=== PATIENT | female | born 2000 | race Two or more races ===

== ENCOUNTER 2024-04-28 11:13 | Emergency (ER) | payer MEDICAID, SELFPAY ==
[2024-04-28 12:09] VITALS: BP 122/81; PULSE 85; RESP 19; TEMP 36.7; O2SAT 95; BMI 42.5
--- NOTE | 2024-04-28 12:14 | XR_ITS ---
Examination: CT abdomen and pelvis without contrast. Coronal 3-D reconstructions. Sagittal 2-D reconstructions. Date and time of exam:April 28, 2024 1447 hrs. Indications: Abdominal pain with rectal bleeding and diarrhea beginning one week ago CTDI: vol (mGy): 14.3 DLP: (mGycm): 825 Technique: Axial images of the abdomen have been obtained, 3 mm slice thickness Intravenous contrast material has not been administered. Low dose protocols were performed. One or more of the following dose reduction techniques were used; automated exposure control, adjustment of the mA and/or KV according to patient size, use of iterative reconstruction technique. Findings: No focal liver or splenic lesions No gallstones No pancreatic or adrenal mass No renal or ureteral calculi No pericecal inflammatory change Anteverted uterus Urinary bladder wall thickening up to 4 mm No bladder calculi No nonspecific colitis or enteritis pattern, however, this is a noncontrast study The osseous structures are intact Impression: No renal or ureteral calculi No CT findings of appendicitis bowel obstruction or diverticulitis No nonspecific colitis or enteritis noted
--- NOTE | 2024-04-28 12:15 | PD.EDRME ---
Rapid Medical Screening Exam RME Arrival date/time: 04/28/24 11:13 24-year-old female presents emergency department complaining of chest pain, abdominal pain, and rectal bleeding that is been ongoing for 1 week. Chief Complaint: GI Bleed Time Seen by Provider: 04/28/24 12:05 Vital signs: Vital Signs Temperature 98.1 F 04/28/24 12:09 Pulse Rate 85 04/28/24 12:09 Respiratory Rate 19 04/28/24 12:09 Blood Pressure 122/81 04/28/24 12:09 Pulse Oximetry (%) 95 04/28/24 12:09 Oxygen Delivery Method Room Air 04/28/24 12:09 Vital signs reviewed by provider: Yes
--- NOTE | 2024-04-28 12:16 | EKG_ITS ---
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
[2024-04-28 12:42] LABS: Basophils % (Auto) 0 % (0-2.5); Eosinophils % (Auto) 0 % (0-10); Hematocrit 37.6 % (36.0-46.0); Hemoglobin 11.9 g/dL (12.0-16.0); Immature Granulocytes % (Auto) 0 % (0-0); Immature Granulocytes Auto 0.02 Thou/mm3 (0.00-0.00); Lymphocytes # (Auto) 2.4 Thou/mm3 (1.0-4.8); Lymphocytes % (Auto) 26 % (10-50); Mean Corpuscular HGB Conc 31.6 g/dl (31.0-37.0); Mean Corpuscular Hemoglobin 25.8 pg (25.0-35.0); Mean Corpuscular Volume 81 fL (80-100); Monocytes # (Auto) 0.4 Thou/mm3 (0.0-0.8); Monocytes % (Auto) 5 % (0-12); Neutrophils # (Auto) 6.1 Thou/mm3 (1.8-7.7); Neutrophils % (Auto) 68 % (37-80); Nucleated Red Blood Cell % 0 /100 WBC (0); Platelet Count 461 Thou/mm3 (140-440); Red Blood Count 4.62 Miln/mm3 (4.00-5.20); White Blood Count 8.9 Thou/mm3 (3.6-11.0)
[2024-04-28 12:55] LABS: B-Type Natriuretic Peptide < 20 pg/mL (0-100)
[2024-04-28 12:58] LABS: Alanine Aminotransferase 53 U/L (10-49); Albumin, Serum 5.2 gm/dL (3.5-5.0); Albumin/Globulin Ratio 1.6 (1.2-2.2); Alkaline Phosphatase 103 U/L (46-116); Anion Gap 8 (7-16); Aspartate Amino Transferase 73 U/L (0-34); BUN/Creatinine Ratio 9 Ratio (12-20); Bilirubin,Total 0.7 mg/dL (0.3-1.2); Blood Urea Nitrogen 7 mg/dL (9-23); Chloride 104 mMol/L (98-107); Creatinine (Component) 0.8 mg/dL (0.6-1.3); Estimated Creatinine Clearance 124.8 mL/min (>60); Globulin 3.2 gm/dL (2.3-3.5); Glucose 109 mg/dL (74-106); HCG,Qualitative Serum Negative; Lipase 38 U/L (12-53); Magnesium 1.8 mg/dL (1.6-2.6); Osmolality,Calculated 276 (275-295); Potassium 3.4 mMol/L (3.4-5.1); Sodium 139 mMol/L (136-145); Total Protein 8.4 gm/dL (5.7-8.2); Troponin I < 0.002 ng/mL (0.0-0.045); eGFR > 60 See Note
[2024-04-28 13:00] LABS: INR 1.1 (0.9-1.3); Partial Thromboplastin Time 27.7 Seconds (22.0-36.0); Prothrombin Time 11.5 Seconds (9.0-12.2)
[2024-04-28 13:11] LABS: Collection Type, Urine Clean Catch
[2024-04-28 13:57] LABS: Bilirubin,Urine Negative (Negative); Blood,Urine Negative (Negative); Color,Urine Yellow (Lt Yel-Yel); Culture Indicated,Urine Not Indicated; Glucose, Urine Negative (Negative); Ketones,Urine Negative (Negative); Leukocyte Esterase,Urine Negative (Negative); Nitrite,Urine Negative (Negative); Protein,Urine 1+ (Neg - Trace); RBC,Urine 1 /hpf (0-3); Specific Gravity,Urine 1.029 (1.001-1.035); Squamous Epithelial Cell,Urine 11 /hpf (0-5); WBC,Urine 1 /hpf (0-5)
[2024-04-28 14:01] LABS: Clarity,Urine Hazy (Clear/Hazy)
--- NOTE | 2024-04-28 14:09 | EDNOTE_ITS ---
ED GI Bleed RME/HPI General Chief complaint: GI Bleed Stated complaint: RECTAL BLEEDING/PAIN X 1 WK W/DIARRHEA; ABD PAIN Time Seen by Provider: 04/28/24 12:05 Arrival date/time: 04/28/24 11:13 Limitations: no limitations RME / HPI RME / HPI Narrative: 04/28/24 11:13 HPI Patient: 24-year-old female presenting to the ED. Chief Complaint: Chest pain, abdominal pain, and rectal bleeding for 1 week. History: Reports bright red blood in stool, denies recent travel or antibiotic use. Occasional periumbilical pain unrelated to bowel movements, painless bowel movements. Denies bleeding or bruising issues. Generally healthy. Hemoglobin: 11.9. Rectal exam was chaperoned by Eemly ZUNIGA, shows a skin tag of an old hemorrhoid without active bleeding, but glove was tinged with bright red blood. Abdominal exam unremarkable. DDX * Hemorrhoids: Common cause of rectal bleeding, especially with a history of hemorrhoids. * Anal fissures: Can cause bright red blood in stool and pain. * Inflammatory bowel disease (IBD): Conditions like Crohn's disease or ulcerative colitis can cause abdominal pain and rectal bleeding. * Infectious colitis: Infection in the colon can cause similar symptoms. * Gastrointestinal bleeding: Could be from a source higher up in the GI tract, such as ulcers or gastritis. * Colorectal cancer: Though less likely in a young patient, should be considered given the symptoms. MDM * Confirm diagnosis: Further evaluation with colonoscopy to identify the source of bleeding. * Management options: * Medical management: Treat any identified infection or inflammation with appropriate medications. * Surgical management: If a significant source of bleeding is identified that requires intervention. * Supportive care: Ensure adequate hydration and nutrition. * Follow-up: Arrange for follow-up care with a drawer in stitch bonding machine for further evaluation and management. * Patient was discussed with Dr. Keenan. He recommended shen patient to be discharged on Cipro and Flagyl, FU with PCP. May need OP GI referral. Return to ED if worsens Related Data Previous Rx's ?Medication ?Instructions ?Recorded hydrocodone 10 mg-acetaminophen 1 tab PO Q6H PRN pain #20 tabs 10/10/23 325 mg tablet ciprofloxacin HCl 500 mg tablet 500 mg PO BID #14 tabs 04/28/24 (Cipro) metronidazole 500 mg tablet 500 mg PO BID 7 days #14 tabs 04/28/24 Allergies Allergy/AdvReac Type Severity Reaction Status Date / Time No Known Allergies Allergy Verified 04/28/24 11:14 Review of Systems Review of Systems Systems Reviewed: All systems reviewed, normal except as documented ED Exam General Limitations: Present no limitations General appearance: Present alert Head Head exam: Present atraumatic Eye Eye exam: Present normal appearance and EOMI ENT ENT exam: Present normal exam Neck Neck exam: Present normal inspection Chest Chest inspection: Present symmetric chest wall rise Respiratory Respiratory exam: Present normal lung sounds bilaterally Cardiovascular Cardiovascular exam: Present regular rate, normal rhythm and normal heart sounds Abdominal Exam Abdominal exam: Present soft and normal bowel sounds Rectal Exam Rectal exam: Present other (See HPI) Course Quality Measures none Orders Category Date Time Status EKG (ED ONLY) *Do not use* NOW Care 04/28/24 12:[address] abdomen pelvis wo con Stat Exams 04/28/24 12:14 Completed EKG (ED Only) Stat Exams 04/28/24 12:16 Draft BNP [B-Type Natriuretic Peptide] Stat Lab 04/28/24 12:26 Completed CBC Stat Lab 04/28/24 12:26 Completed CMP [Comprehensive Metabolic Panel] Stat Lab 04/28/24 12:26 Completed HCG,Qualitative Serum Stat Lab 04/28/24 12:26 Completed Lipase Stat Lab 04/28/24 12:26 Completed Mag [Magnesium] Stat Lab 04/28/24 12:26 Completed PT [Prothrombin Time with INR] Stat Lab 04/28/24 12:26 Completed PTT [Partial Thromboplastin Time] Stat Lab 04/28/24 12:26 Completed Troponin I Stat Lab 04/28/24 12:26 Completed Urinalysis, C/S if Indicated Stat Lab 04/28/24 12:46 Completed Ciprofloxacin HCl [Ciprofloxacin] Med 04/28/24 16:44 Discontinued 500 mg PO X1 ONE Vital Signs Vital signs: Vital Signs Temperature 98.1 F 04/28/24 12:09 Pulse Rate 85 04/28/24 12:09 Respiratory Rate 19 04/28/24 12:09 Blood Pressure 122/81 04/28/24 12:09 Pulse Oximetry (%) 95 04/28/24 12:09 Oxygen Delivery Method Room Air 04/28/24 12:09 GI Bleed Patient data External records reviewed:: [facility] previous records Clinical information provided by:: patient Social determinants that could affect healthcare access:: none Patient has the following chronic illnesses:: None How is presenting disease/condition affected by chronic disease/condition?: no chronic disease Evaluation data The following diagnostics were reviewed and interpreted by me:: lab results, radiology exam(s) and EKG tracing(s) Lab and/or radiology exams considered but not ordered:: See MDM Interpretation Summary: See MDM Medications / Prescriptions Medications or Prescriptions considered but not ordered:: NA Medication administrations:: Medication Administration History Discontinued Medications Ciprofloxacin (Ciprofloxacin Hcl 250 Mg Tablet) 500 mg PO X1 ONE Stop: 04/28/24 16:45 Last Admin: 04/28/24 16:59 Dose: 500 mg Documented By: Noted Consultations Consultation(s) initiated? (list below): Yes Diagnosis GI bleed differential diagnosis: hemorrhoids, Lower gastrointestinal hemorrhage, hematochezia and anal fissure Most likely diagnosis given after review of the tests above:: Bloody diarrhea Admission Indicated Admission indicated?: not indicated Admission Request Was there a request for admission?: No Disposition Plan Disposition Plan: Discharge Discharge Attestation Discharge Attestation: The patient and all family members were given an opportunity to ask questions and understood the discharge instructions. Discharge instructions specifically effects, indications for sooner follow up or return to the emergency department, and the expected course of current diagnosis. Patient condition: Stable Discharge Plan Plan Patient Disposition: HOME (Self Care) Disposition Comment: stable Patient condition on transfer: Stable Prescriptions/Referrals Prescriptions/Med Rec: New ciprofloxacin HCl [Cipro] 500 mg tablet 500 mg PO BID Qty: 14 0RF metronidazole 500 mg tablet 500 mg PO BID 7 Days Qty: 14 0RF No Action hydrocodone-acetaminophen 10-325 mg tablet 1 tab PO Q6H MDD 4 PRN (Reason: pain) Qty: 20 0RF Referrals: Jose Hough MD [Primary Care Provider] - In 1 week Problem List Clinical Impression: Bloody diarrhea Patient/Caregiver Discharge Instructions Discharge Activity: activity as tolerated Education Materials: Treating Diarrhea Additional Instructions: Thank you for the opportunity for serving you today. You are stable for discharged . You are advised to: Follow-up with your PCP in 1 to 2 days and asked for referral to GI specialist Return to ED for worsening of symptoms Increase oral fluids Take medication as prescribed Print Language: Faroese Stand Alone Forms: Thu Award Info., Patient Portal Info Letter PA/VEGETABLE GRADER Supervising Physician PA/VEGETABLE GRADER Supervising Physician: MD Cj
--- NOTE | 2024-04-28 16:03 | PC.NURSE ---
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
[2024-04-28 16:27] VITALS: BP 115/79; PULSE 79; RESP 18; TEMP 36.7; O2SAT 97
--- NOTE | 2024-04-28 16:46 | EDNOTE_ITS ---
ED GI Bleed RME/HPI General Chief complaint: GI Bleed Stated complaint: RECTAL BLEEDING/PAIN X 1 WK W/DIARRHEA; ABD PAIN Time Seen by Provider: 04/28/24 12:05 Arrival date/time: 04/28/24 11:13 Limitations: no limitations RME / HPI RME / HPI Narrative: 04/28/24 11:13 HPI Patient: 24-year-old female presenting to the ED. Chief Complaint: Chest pain, abdominal pain, and rectal bleeding for 1 week. History: Reports bright red blood in stool, denies recent travel or antibiotic use. Occasional periumbilical pain unrelated to bowel movements, painless bowel movements. Denies bleeding or bruising issues. Generally healthy. Hemoglobin: 11.9. Rectal exam was chaperoned by Emely ZUNIGA, shows a skin tag of an old hemorrhoid without active bleeding, but glove was tinged with bright red blood. Ysabel Notes: 24-year-old female patient came in for evaluation regarding bloody diarrhea. Patient's been having bloody diarrhea, for 1 week, associated with lower abdominal discomfort. Blood is described as bright red blood. Patient denies any travel recently or antibiotic use. Denies any fever denies any vomiting denies any bruising denies any other complaints patient is not taking any blood thinner. Related Data Previous Rx's ?Medication ?Instructions ?Recorded hydrocodone 10 mg-acetaminophen 1 tab PO Q6H PRN pain #20 tabs 10/10/23 325 mg tablet ciprofloxacin HCl 500 mg tablet 500 mg PO BID #14 tabs 04/28/24 (Cipro) metronidazole 500 mg tablet 500 mg PO BID 7 days #14 tabs 04/28/24 Allergies Allergy/AdvReac Type Severity Reaction Status Date / Time No Known Allergies Allergy Verified 04/28/24 11:14 Review of Systems Review of Systems Narrative Review of Systems: Review of system reviewed and within normal limits except mentioned in HPI ED Exam Narrative Physical exam: VITAL SIGNS: Reviewed. GENERAL APPEARANCE: Alert and interactive, follows commands, no acute distress, HEAD AND FACE: Non-traumatic. ENT: PERRL, pink conjunctivitis, eyelid no trauma, Mucous membrane moist. NECK: Supple, nontender, no nuchal rigidity. CHEST: No tenderness, no crepitus, no paradoxical movement, no retractions. LUNGS: Clear, well ventilated, symmetric, no rales, no wheezing, no ronchi, no stridor, good breath sounds bilaterally. HEART: Regular rate, regular rhythm, no murmur, no gallops. ABDOMEN: Soft, positive bowel sounds, nondistended, no guarding, nontender, no rebound, no masses, RECTAL: See rectal exam done by Dr. Corona GENITAL: Deferred. NEUROLOGICAL: Gross motor function intact sensory function intact, Appropriate for age. MUSCULOSKELETAL: low back nontender, full range of motion. EXTREMITIES: Nontender, full range of motion. SKIN: Color pink, dry, no rash, no lacerations, no abrasions, no contusions. LYMPHATICS: Deferred. General Limitations: Present no limitations General appearance: Present alert Course Quality Measures none Orders Category Date Time Status EKG (ED ONLY) *Do not use* NOW Care 04/28/24 12:[address] abdomen pelvis wo con Stat Exams 04/28/24 12:14 Completed EKG (ED Only) Stat Exams 04/28/24 12:16 Draft BNP [B-Type Natriuretic Peptide] Stat Lab 04/28/24 12:26 Completed CBC Stat Lab 04/28/24 12:26 Completed CMP [Comprehensive Metabolic Panel] Stat Lab 04/28/24 12:26 Completed HCG,Qualitative Serum Stat Lab 04/28/24 12:26 Completed Lipase Stat Lab 04/28/24 12:26 Completed Mag [Magnesium] Stat Lab 04/28/24 12:26 Completed PT [Prothrombin Time with INR] Stat Lab 04/28/24 12:26 Completed PTT [Partial Thromboplastin Time] Stat Lab 04/28/24 12:26 Completed Troponin I Stat Lab 04/28/24 12:26 Completed Urinalysis, C/S if Indicated Stat Lab 04/28/24 12:46 Completed Ciprofloxacin HCl [Ciprofloxacin] Med 04/28/24 16:44 Discontinued 500 mg PO X1 ONE Vital Signs Vital signs: Vital Signs Temperature 98.1 F 04/28/24 12:09 Pulse Rate 85 04/28/24 12:09 Respiratory Rate 19 04/28/24 12:09 Blood Pressure 122/81 04/28/24 12:09 Pulse Oximetry (%) 95 04/28/24 12:09 Oxygen Delivery Method Room Air 04/28/24 12:09 GI Bleed MDM Narrative MDM Narrative:: 24-year-old female patient came in for evaluation regarding bloody diarrhea. Patient's been having bloody diarrhea, for 1 week, associated with lower abdominal discomfort. Blood is described as bright red blood. Patient denies any travel recently or antibiotic use. Denies any fever denies any vomiting denies any bruising denies any other complaints patient is not taking any blood thinner. Patient's workup all came back unremarkable. Patient did not show any anemia. No leukocytosis also. The rest of the labs unremarkable. CT scan of the abdomen and pelvis came back unremarkable. Patient was advised to closely follow-up with PCP and for referral to GI specialist for outpatient colonoscopy. Patient will be given empiric antibiotic treatment. For bloody diarrhea. Patient was presented to Dr. Keenan our gastroenterologists in consultation. Patient will be discharged home on Cipro and Flagyl with a diagnosis of bacterial enteritis. It is recommended to follow-up with her primary care provider. If her symptoms continues, may need to be referred for colonoscopy. If she worsens, needs to return to emergency department for reevaluation. Patient data External records reviewed:: None Clinical information provided by:: patient Social determinants that could affect healthcare access:: none Patient has the following chronic illnesses:: none How is presenting disease/condition affected by chronic disease/condition?: no chronic disease Evaluation data The following diagnostics were reviewed and interpreted by me:: lab results and radiology exam(s) Lab and/or radiology exams considered but not ordered:: None Interpretation Summary: Laboratory workup all came back unremarkable. CT scan of the abdomen and pelvis came back normal also. Medications / Prescriptions Medications or Prescriptions considered but not ordered:: Plan Medication administrations:: Medication Administration History Discontinued Medications Ciprofloxacin (Ciprofloxacin Hcl 250 Mg Tablet) 500 mg PO X1 ONE Stop: 04/28/24 16:45 Last Admin: 04/28/24 16:59 Dose: 500 mg Documented By: Cipro Consultations Consultation(s) initiated? (list below): No Diagnosis GI bleed differential diagnosis: hemorrhoids, infectious diarrhea and Lower gastrointestinal hemorrhage Most likely diagnosis given after review of the tests above:: Bloody diarrhea Admission Indicated Admission indicated?: not indicated Explain why admission is indicated or not indicated:: Stable Admission Request Was there a request for admission?: No Disposition Plan Disposition Plan: Discharge Discharge Attestation Discharge Attestation: The patient and all family members were given an opportunity to ask questions and understood the discharge instructions. Discharge instructions specifically effects, indications for sooner follow up or return to the emergency department, and the expected course of current diagnosis. Patient condition: Stable Discharge Plan Plan Patient Disposition: HOME (Self Care) Disposition Comment: stable Patient condition on transfer: Stable Prescriptions/Referrals Prescriptions/Med Rec: New ciprofloxacin HCl [Cipro] 500 mg tablet 500 mg PO BID Qty: 14 0RF metronidazole 500 mg tablet 500 mg PO BID 7 Days Qty: 14 0RF No Action hydrocodone-acetaminophen 10-325 mg tablet 1 tab PO Q6H MDD 4 PRN (Reason: pain) Qty: 20 0RF Referrals: Jose Hough MD [Primary Care Provider] - In 1 week Problem List Clinical Impression: Bloody diarrhea Patient/Caregiver Discharge Instructions Discharge Activity: activity as tolerated Education Materials: Treating Diarrhea Additional Instructions: Thank you for the opportunity for serving you today. You are stable for discharged . You are advised to: Follow-up with your PCP in 1 to 2 days and asked for referral to GI specialist Return to ED for worsening of symptoms Increase oral fluids Take medication as prescribed Print Language: Maltese Stand Alone Forms: Thu Award Info., Patient Portal Info Letter PA/NUCLEAR MEDICINE TECHNICIAN Supervising Physician NIKOS/AMISHA Supervising Physician: MD Cj
[2024-04-28] MEDS: CIPROFLOXACIN HCL 250 MG TABLET 500 MG PO (16:59)
== END 2024-04-28 17:06 | disposition home or self-care (01) ==
PROVIDERS: Emergency Provider Emergency Medicine; PCP Family Medicine
DX: A04.9 Bacterial intestinal infection, unspecified (principal)
CPT/HCPCS: 36415; 74176; 80053; 81001; 83690; 83735; 83880; 84484; 84703; 85025; 85610; 85730; 93005; 99284; A9270

== ENCOUNTER 2024-06-11 17:57 | Emergency (ER) | payer MEDICAID, SELFPAY ==
[2024-06-11 18:26] VITALS: BP 120/75; PULSE 91; RESP 20; TEMP 36.8; O2SAT 97; BMI 42.0
--- NOTE | 2024-06-11 18:29 | XR_ITS ---
EXAMINATION: Ankle, left 3 views . Technique: Ankle AP, oblique, lateral 3 views Date and time of exam: June 11, 2024 at 1834 hours INDICATIONS: Left ankle pain beginning 4 days ago after falling into a pothole, patient heard a crack in the ankle followed by pain FINDINGS: No acute fracture No ankle dislocation No foreign body IMPRESSION: No acute fracture
--- NOTE | 2024-06-11 18:29 | PD.EDANKLE ---
Lower Extremity Injury RME/HPI General Chief Complaint: Ankle/Foot Injury Stated Complaint: LEFT ANKLE INJURY X 4 DAYS Time Seen by Provider: 06/11/24 18:07 Source: patient Arrival date/time: 06/11/24 17:57 24-year-old female presents emergency department complaining of left ankle pain and swelling after stepping in a pothole 4 days ago. Patient reports has been able to bear weight with some pain. Mode of arrival: ambulatory Limitations: no limitations Related Data Previous Rx's ?Medication ?Instructions ?Recorded hydrocodone 10 mg-acetaminophen 1 tab PO Q6H PRN pain #20 tabs 10/10/23 325 mg tablet ciprofloxacin HCl 500 mg tablet 500 mg PO BID #14 tabs 04/28/24 (Cipro) acetaminophen 500 mg capsule 500 mg PO Q6H PRN pain #30 caps 06/11/24 Allergies Allergy/AdvReac Type Severity Reaction Status Date / Time No Known Allergies Allergy Verified 06/11/24 17:58 Review of Systems Review of Systems Systems Reviewed: All systems reviewed, normal except as documented Constitutional Constitutional: Reports system reviewed and no additional complaints, except as documented, Denies body ache(s), Denies chills and Denies fever(s) Eyes Eyes: Reports system reviewed and no additional complaints, except as documented and Denies change in vision ENT Ears, Nose, Mouth, and Throat: Reports system reviewed and no additional complaints, except as documented, Denies disequilibrium, Denies dizziness, Denies sore throat and Denies vertigo Cardiovascular Cardiovascular: Reports system reviewed and no additional complaints, except as documented, Denies chest pain and Denies dyspnea Respiratory Respiratory: Reports system reviewed and no additional complaints, except as documented, Denies chest congestion, Denies cough and Denies dyspnea Gastrointestinal Gastrointestinal: Reports system reviewed and no additional complaints, except as documented, Denies abdominal pain, Denies nausea and Denies vomiting Musculoskeletal Musculoskeletal: Reports system reviewed and no additional complaints, except as documented, Denies abnormal gait and Reports arthralgias Integumentary/Breasts Skin/Breast: Reports system reviewed and no additional complaints, except as documented, Denies erythema, Denies rash and Denies wounds Neurologic Neurologic: Reports system reviewed and no additional complaints, except as documented, Denies abnormal gait, Denies disequilibrium, Denies dizziness and Denies vertigo Past Medical History Past Medical History NEUROLOGIC: Negative Neurological Disorders, Cerebrovascular Accident, Transient Ischemic Attacks (TIA), Dementia, Alzheimer's Disease, Parkinson's Disease, Brain Tumor, Meningitis, Seizures, Epilepsy, Multiple Sclerosis, Cerebral Palsy, Amyotrophic Lateral Sclerosis (ALS/Eboni Gehrig's), Guillain-Branford Syndrome, Spina Bifida, Paralysis, Peripheral Neuropathy, Tatum's Palsy, Subdural Hematoma, Migraine, Head Trauma, Spinal Cord Injury or Traumatic Brain Injury CARDIAC: Negative Cardiac Disorders, Myocardial Infarction, Cardiac Arrhythmia, Atrial Fibrillation, Angina, Heart Murmur, Coronary Artery Disease, Atherosclerotic Heart Disease, Peripheral Vascular Disease, Hypercholesterolemia, Aneurysm, Congestive Heart Failure, Congenital Heart Disease, Valvular Heart Disease, Rheumatic Fever, Cardiomyopathy, Edema, Pericarditis, Cellulitis, Deep Vein Thrombosis, Hypertension, Hypotension or Varicose Veins RESPIRATORY: Negative Chronic Obstructive Pulmonary Disease (COPD), Asthma, Bronchitis, Emphysema, Pneumonia, Pulmonary Fibrosis, Cystic Fibrosis, Tuberculosis, Pulmonary Embolism, Pulmonary Edema or Sleep Apnea GASTROINTESTINAL: Positive Gastrointestinal Disorders, Gastrointestinal Bleed (vomiting), Crohn's Disease and Obesity; Negative Hepatitis, Cirrhosis, Pancreatitis, Celiac Disease, Gall Bladder Disease, Esophageal Varices, Joyce's Esophagus, Colitis, Ulcerative Colitis (1 month ago), Diverticulitis, Diverticulosis, Ulcer, Colorectal Cancer, Irritable Bowel, Obstructive Bowel, Hiatal Hernia, Hemorrhoids or Gastroesophageal Reflux Disease GENITOURINARY: Negative Genitourinary Disorders, Renal Disease, Kidney Stones, Polycystic Kidney Disease, Neurogenic Bladder, Inguinal Hernia, Dialysis or Prostate Cancer (n/a) REPRODUCTIVE: Positive Previous Pregnancies (1); Negative Breast Cancer, Endometriosis, Genital Herpes, Gonorrhea, Pelvic Inflammatory Disease, Syphilis, Testicular Cancer (n/a) or Uterine Prolapse MUSCULOSKELETAL: Negative Musculoskeletal Disorders, Muscular Dystrophy, Myasthenia Gravis, Marfan's Syndrome, Bone Cancer, Arthritis, Rheumatoid Arthritis, Osteoporosis, Degenerative Disk Disease, Gout, Scoliosis, Carpal Tunnel Syndrome, Fibromyalgia, Fractures, Degenerative Joint Disease, Osteomyelitis or Poliovirus ENT: Negative Cataracts, Glaucoma, Blind, Retinal Detachment, Macular Degeneration, Ear Infection, Deafness, Head Trauma or Eye Prosthesis ENDOCRINE: Negative Endocrine Disorders, Diabetes Mellitus Type 1, Diabetes Mellitus Type 2, Hypoglycemia, Lamin's Syndrome, Buddy's Disease, Hyperthyroidism, Hypothyroidism, Parathyroid Disease, Pituitary Disease, Systemic Lupus Erythematosus, Syndrome of Inappropriate Antidiuretic Hormone (SIADH), Adrenal Disease or Graves' Disease HEMATOLOGIC: Negative Blood Disorders, Anemia, Leukemia, Hemophilia, Thalassemia, Sickle Cell Disease or Clotting Problems PSYCHO/SOCIAL: Negative Psychiatric Problems, Schizophrenia, Recreational Drug Use, Bipolar Disorder, Depression, Anxiety, Behavior Problems, Self-Mutilation, Attention Deficit Disorder, Attention Deficit Hyperactivity Disorder, Depression, Post Traumatic Stress Disorder or Eating Disorder OTHER HISTORY: Positive Hospitalization (child ); Negative Autoimmune Disease, Down Syndrome, Autism, Developmental Delay, Shingles, Falls, Blood Transfusions, Blood Transfusion Reaction, Anesthesia Reactions, Organ Transplant, Radiation Therapy, Hyperbaric Therapy, MRSA, VRSA, Vancomycin-Resistant Enterococci, Human Immunodeficiency Virus (HIV), Chicken Pox, Measles, Mumps, Rubella (English Measles), Pertussis, Clostridium Difficile, Cancer, Breast Cancer, Cervical Cancer, Colorectal Cancer, Lung Cancer, Ovarian Cancer, Prostate Cancer (n/a) or Testicular Cancer (n/a) Family History FAMILY HISTORY: Negative Family Psychiatric Problems, Family Respiratory Disorders, Family Cardiac Disorders, Family Gastrointestinal Problems, Family Cancer, Family Surgery or Family Anesthesia Reaction Surgical History SURGICAL: Positive Abdominal Surgery; Negative Cardiac Surgery, Open Heart Surgery, Coronary Artery Bypass Graft, Valve Replacement, Vascular Surgery, Coronary Stent, Cardiac Catheterization, Pacemaker, Angiogram, Auto Implanted Cardiovert Defib, Carotid Endarterectomy, Endocrine Surgery, Thyroidectomy, Ear Surgery, Tympanostomy Tube, Eye Surgery, Nose Surgery, Oral Surgery, Tonsillectomy, Adenoidectomy, Cochlear Implant, Corneal Transplant, Throat Surgery, Tracheostomy, Gastric Bypass Surgery, Gastrostomy, Bowel Surgery, Nephrectomy, Transurethral Resection, Joint Replacement, Amputation, Open Reduction Internal Fixation, Arthroscopy, Neurologic Surgery, Brain Shunt, Mastectomy, Lumpectomy, Hysterectomy, Tubal Ligation, Section or Organ Transplant Social History SMOKING STATUS: Never smoker SECOND HAND EXPOSURE: No SUBSTANCE USE: does not use ED Exam General Limitations: Present no limitations General appearance: Present alert and in no apparent distress Head Head exam: Present atraumatic Eye Eye exam: Present normal appearance, PERRL and EOMI ENT ENT exam: Present normal exam, normal oropharynx and mucous membranes moist Neck Neck exam: Present normal inspection, full ROM and trachea midline Chest Chest inspection: Present normal inspection and symmetric chest wall rise Respiratory Respiratory exam: Present normal lung sounds bilaterally Cardiovascular Cardiovascular exam: Present regular rate, normal rhythm and normal heart sounds Abdominal Exam Abdominal exam: Present soft and normal bowel sounds Extremities Exam Extremities exam: Present normal inspection and full ROM Expanded Lower Extremity Exam Ankle exam: Present tenderness and swelling (+1 edema left ankle) Neurovascular/Tendon exam: Present normal capillary refill Back Exam Back exam: Present normal inspection and full ROM Neurological Exam Neurological exam: Present alert, oriented X3 and CN II-XII intact Psychiatric Psychiatric exam: Present normal affect and normal mood Skin Skin exam: Present warm, dry, intact and normal color Course Quality Measures none Orders Category Date Time Status XR ankle comp LT min 3V Stat Exams 06/11/24 18:29 Completed Ketorolac Inj [Toradol Inj] Med 06/11/24 18:29 Discontinued 30 mg IM X1 ONE Vital Signs Vital signs: Vital Signs Temperature 98.2 F 06/11/24 18:26 Pulse Rate 91 06/11/24 18:26 Respiratory Rate 20 06/11/24 18:26 Blood Pressure 120/75 06/11/24 18:26 Pulse Oximetry (%) 97 06/11/24 18:26 Oxygen Delivery Method Room Air 06/11/24 18:26 97% room air within normal limits Extremity Injury, Lower MDM Narrative MDM Narrative:: 24-year-old female presents emergency department complaining of left ankle pain and swelling after stepping in a pothole 4 days ago. Patient reports has been able to bear weight with some pain. Left ankle edema +1 with pain upon ambulation. X-ray ankle unremarkable for any fracture. Patient likely has ankle sprain. Patient data External records reviewed:: [facility] previous records Clinical information provided by:: patient Social determinants that could affect healthcare access:: none Patient has the following chronic illnesses:: See chart How is presenting disease/condition affected by chronic disease/condition?: uneffected by Evaluation data The following diagnostics were reviewed and interpreted by me:: radiology exam(s) Lab and/or radiology exams considered but not ordered:: Ordered Interpretation Summary: Interpreted by me Medications / Prescriptions Medications or Prescriptions considered but not ordered:: Ordered Medication administrations:: Medication Administration History Discontinued Medications Ketorolac Tromethamine (Ketorolac Inj 60 Mg/2 Ml Vial) 30 mg IM X1 ONE Stop: 06/11/24 18:30 Given Consultations Consultation(s) initiated? (list below): No Diagnosis Extremity Injury, Lower Differential Diagnosis: ankle sprain and strain and ankle fracture Most likely diagnosis given after review of the tests above:: Ankle sprain Admission Indicated Admission indicated?: not indicated Admission Request Was there a request for admission?: No Disposition Plan Disposition Plan: Discharge Discharge Attestation Discharge Attestation: The patient and all family members were given an opportunity to ask questions and understood the discharge instructions. Discharge instructions specifically effects, indications for sooner follow up or return to the emergency department, and the expected course of current diagnosis. Patient condition: Stable Discharge Plan Plan Patient Disposition: HOME (Self Care) Disposition Comment: Stable Prescriptions/Referrals Prescriptions/Med Rec: New acetaminophen 500 mg capsule 500 mg PO Q6H PRN (Reason: pain) Qty: 30 0RF No Action hydrocodone-acetaminophen 10-325 mg tablet 1 tab PO Q6H MDD 4 PRN (Reason: pain) Qty: 20 0RF ciprofloxacin HCl [Cipro] 500 mg tablet 500 mg PO BID Qty: 14 0RF Referrals: Jose Hough MD [Primary Care Provider] - In 1 week Problem List Clinical Impression: Ankle sprain Patient/Caregiver Discharge Instructions Discharge Activity: activity as tolerated Education Materials: Treating Ankle Sprains, ED VOLODYMYR Wrap, ED Ankle Sprain (Adult) Additional Instructions: Take Tylenol as needed for pain. Rest, ice, compress, and elevate affected extremity. Follow-up with primary care provider in 2 to 3 days. Return to emergency department for any worsening symptoms or as needed. Print Language: Danish Stand Alone Forms: Thu Award Info., Patient Portal Info Letter PA/[employer]PER[employer] Supervising Physician PA/[employer]PER[employer] Supervising Physician: Dr. Arevalo
[2024-06-11] MEDS: KETOROLAC INJ 60 MG/2 ML VIAL 30 MG IM (19:17)
== END 2024-06-11 19:27 | disposition home or self-care (01) ==
PROVIDERS: Emergency Provider Emergency Medicine; PCP Family Medicine
DX: S93.402A Sprain of unspecified ligament of left ankle, initial encounter (principal)
CPT/HCPCS: 73610; 96372; 99283; J1885

== ENCOUNTER 2024-12-17 09:03 | Emergency (ER) | payer MEDICAID, SELFPAY ==
[2024-12-17 09:04] VITALS: BMI 37.0
[2024-12-17 09:10] VITALS: BP 127/89; PULSE 107; RESP 20; TEMP 36.8; O2SAT 97
--- NOTE | 2024-12-17 09:13 | EKG_ITS ---
[facility] Test Date: 2024-12-17 Pat Name: JEANIE CASTRO Department: Room: - Gender: Female Maintenance Man: : 2000 Requested By: Cr Medellin Order Number: [id number] Reading MD: Cr Med[place]in Measurements Intervals [place] Rate: 100 P: 29 [place]: 122 QRS: 4 QRSD: 86 T: 10 QT: 354 QTc: 458 Interpretive Statements SINUS TACHYCARDIA MINIMAL VOLTAGE CRITERIA FOR LVH, CONSIDER NORMAL VARIANT [MEETS CRITERIA IN ONE OF: R(aVL), S(V1), R(V5), R(V5/V6)+S(V1)] ABNORMAL RHYTHM ECG Compared to ECG 04/28/2024 12:22:52 Sinus rhythm no longer present /store/S0/[id number].pdf
--- NOTE | 2024-12-17 09:13 | XR_ITS ---
Examination: CT brain head without contrast. 2-D sagittal coronal reconstructions Date and time of exam:December 17, 2024 0929 hours INDICATIONS: Headaches and dizziness beginning 2 weeks ago CTDI: vol (mGy):49.1 DLP: (mGycm):951 Technique: Multiple CT axial sections of the brain have been obtained, 5 mm slice thickness. Contrast has not been administered. 2-D sagittal, coronal reconstructions have been obtained Low dose protocols were performed. One or more of the following dose reduction techniques were used; automated exposure control, adjustment of the mA and/or KV according to patient size, use of iterative reconstruction technique. Findings: No significant ventricular enlargement. Intra-axial or extra-axial hemorrhage density is not seen. No mass effect or midline shift Basal cisterns are not remarkable. Fourth ventricle is midline. Cranial vault intact. Impression: Negative for acute hemorrhage, mass effect or midline shift Acute left maxillary sinusitis
--- NOTE | 2024-12-17 09:15 | PD.EDRME ---
Rapid Medical Screening Exam E Arrival date/time: 12/17/24 09:03 24-year-old female with no known medical history presents to the emergency room with a chief complaint of numbness to her right side of her face, headache, blurry and double vision that began 2 days ago and has progressively gotten worse today. I have greeted and performed a focused initial assessment of this patient. A comprehensive ED assessment and evaluation of the patient, analysis of all test results, and completion of the medical decision making process will be conducted by additional ED providers. Chief Complaint: Headache Vital signs: Vital Signs Temperature 98.3 F 12/17/24 09:10 Pulse Rate 107 H 12/17/24 09:10 Respiratory Rate 20 12/17/24 09:10 Blood Pressure 127/89 H 12/17/24 09:10 Pulse Oximetry (%) 97 12/17/24 09:10 Oxygen Delivery Method Room Air 12/17/24 09:10 Vital signs reviewed by provider: Yes
[2024-12-17 09:56] VITALS: BP 134/83; PULSE 101; RESP 23; TEMP 36.7; O2SAT 100
[2024-12-17 10:11] LABS: Basophils # (Auto) 0.0 Thou/mm3 (0.0-0.2); Basophils % (Auto) 0 % (0-2.5); Eosinophils # (Auto) 0.0 Thou/mm3 (0.0-0.5); Eosinophils % (Auto) 0 % (0-10); Hematocrit 36.7 % (36.0-46.0); Hemoglobin 12.1 g/dL (12.0-16.0); Immature Granulocytes Auto 0.02 Thou/mm3 (0.00-0.00); Lymphocytes # (Auto) 3.3 Thou/mm3 (1.0-4.8); Lymphocytes % (Auto) 35 % (10-50); Mean Corpuscular HGB Conc 33.0 g/dl (31.0-37.0); Mean Corpuscular Hemoglobin 25.7 pg (25.0-35.0); Mean Corpuscular Volume 78 fL (80-100); Monocytes # (Auto) 0.6 Thou/mm3 (0.0-0.8); Monocytes % (Auto) 6 % (0-12); Neutrophils # (Auto) 5.5 Thou/mm3 (1.8-7.7); Neutrophils % (Auto) 58 % (37-80); Nucleated Red Blood Cell # 0.00 Thou/mm3 (0.00-0.00); Nucleated Red Blood Cell % 0 /100 WBC (0); Platelet Count 422 Thou/mm3 (140-440); RDW Standard Deviation 42.3 fL (36.4-46.3); Red Blood Count 4.71 Miln/mm3 (4.00-5.20); White Blood Count 9.4 Thou/mm3 (3.6-11.0)
[2024-12-17 10:27] LABS: Alanine Aminotransferase 25 U/L (10-49); Albumin, Serum 5.0 gm/dL (3.5-5.0); Albumin/Globulin Ratio 1.5 (1.2-2.2); Alkaline Phosphatase 95 U/L (46-116); Anion Gap 12 (7-16); Aspartate Amino Transferase 39 U/L (0-34); BUN/Creatinine Ratio 12 Ratio (12-20); Bilirubin,Total 1.0 mg/dL (0.3-1.2); Blood Urea Nitrogen 11 mg/dL (9-23); Calcium 9.7 mg/dL (8.3-10.6); Calcium (Corrected) 9.7 mg/dL (8.5-10.1); Carbon Dioxide 22.7 mMol/L (20.0-31.0); Chloride 107 mMol/L (98-107); Creatinine (Component) 0.9 mg/dL (0.6-1.3); Estimated Creatinine Clearance 94.8 mL/min (>60); Globulin 3.3 gm/dL (2.3-3.5); Glucose 107 mg/dL (74-106); Osmolality,Calculated 282 (275-295); Potassium 4.2 mMol/L (3.4-5.1); Sodium 142 mMol/L (136-145); Total Protein 8.3 gm/dL (5.7-8.2); Troponin I < 0.002 ng/mL (0.0-0.045); eGFR > 60 See Note
[2024-12-17 10:32] LABS: B-Type Natriuretic Peptide < 20 pg/mL (0-100)
[2024-12-17 10:36] LABS: Collection Type, Urine Clean Catch
--- NOTE | 2024-12-17 10:56 | EDNOTE_ITS ---
ED Headache RME/HPI General Chief Complaint: Headache Stated Complaint: SEVERE HEADACHE, HEAD SPINNING, R) SIDE NUMB Time Seen by Provider: 12/17/24 09:57 Arrival date/time: 12/17/24 09:03 Limitations: no limitations RME / HPI RME / HPI Narrative: 12/17/24 09:03 24-year-old female with no known medical history presents to the emergency room with a chief complaint of numbness to her right side of her face, headache, blurry and double vision that began 2 days ago and has progressively gotten worse today. I have greeted and performed a focused initial assessment of this patient. A comprehensive ED assessment and evaluation of the patient, analysis of all test results, and completion of the medical decision making process will be conducted by additional ED providers. DR. AKUA ARGUELLO ED EVALUATION 24 year old female presents to the ED for evaluation of headache today. States at 3AM she was woken up from sleep with a pounding headache that was rated as severe. Located throughout but worse on the right side. Reports taking two Ibuprofen without improvement and eventually fell back to sleep. States she woke up again ~ 7AM to pick her mother up and headache persisted. States while driving noted her vision became blurry and was seeing double with momentarily seeing black lasting a few seconds. Accompanied by dizziness and right side of head feeling numb/tingling. Patient denies any history of headache although does report she had a headache, not to this severity, 1 week ago that resolved on its own. Since arriving to the ED states headache is episodic and during my ev aluation feels improved. Only medication patient takes is Zepbound 7.5mg for weight loss. Related Data Previous Rx's ?Medication ?Instructions ?Recorded hydrocodone 10 mg-acetaminophen 1 tab PO Q6H PRN pain #20 tabs 10/10/23 325 mg tablet ciprofloxacin HCl 500 mg tablet 500 mg PO BID #14 tabs 04/28/24 (Cipro) acetaminophen 500 mg capsule 500 mg PO Q6H PRN pain #3 0 caps 06/11/24 sumatriptan 20 mg/actuation nasal 20 mg intranasal Q2H PRN migraine 12/17/24 spray headache #6 ea Allergies Allergy/AdvReac Type Severity Reaction Status Date / Time No Known Allergies Allergy Verified 12/17/24 09:06 Review of Systems Review of Systems Systems Reviewed: All systems reviewed, normal except as documented Past Medical History Past Medical History NEUROLOGIC: Negative Neurological Disorders CARDIAC: Negative Cardiac Disorders GASTROINTESTINAL: Positive Gastrointestinal Disorders, Gastrointestinal Bleed (vomiting), Crohn's Disease and Obesity GENITOURINARY: Negative Genitourinary Disorders or Renal Disease Family History FAMILY HISTORY: Negative Family Psychiatric Problems, Family Respiratory Disorders, Family Cardiac Disorders, Family Gastrointestinal Problems, Family Cancer, Family Surgery or Family Anesthesia Reaction Surgical History SURGICAL: Positive Abdominal Surgery; Negative Cardiac Surgery, Open Heart Surgery, Coronary Artery Bypass Graft, Valve Replacement, Vascular Surgery, Coronary Stent, Cardiac Catheterization, Pacemaker, Angiogram, Auto Implanted Cardiovert Defib, Carotid Endarterectomy, Endocrine Surgery, Thyroidectomy, Ear Surgery, Tympanostomy Tube, Eye Surgery, Nose Surgery, Oral Surgery, Tonsillectomy, Adenoidectomy, Cochlear Implant, Corneal Transplant, Throat Surgery, Tracheostomy, Gastric Bypass Surgery, Gastrostomy, Bowel Surgery, Nephrectomy, Transurethral Resection, Joint Replacement, Amputation, Open Reduction Internal Fixation, Arthroscopy, Neurologic Surgery, Brain Shunt, Mastectomy, Lumpectomy, Hysterectomy, Tubal Ligation or Section Social History SMOKING STATUS: Never smoker SECOND HAND EXPOSURE: No SUBSTANCE USE: does not use ED Exam General Limitations: Present no limitations General appearance: Present alert and in no apparent distress Head Head exam: Present atraumatic, normocephalic and other (No facial tenderness to palpation) Eye Eye exam: Present normal appearance, PERRL and EOMI ENT ENT exam: Present normal exam, normal oropharynx and mucous membranes moist Neck Neck exam: Present normal inspection, full ROM and trachea midline Chest Chest inspection: Present normal inspection and symmetric chest wall rise Respiratory Respiratory exam: Present normal lung sounds bilaterally Cardiovascular Cardiovascular exam: Present regular rate, normal rhythm and normal heart sounds Abdominal Exam Abdominal exam: Present soft and normal bowel sounds Extremities Exam Extremities exam: Present normal inspection and full ROM Back Exam Back exam: Present normal inspection and full ROM Neurological Exam Neurological exam: Present alert, oriented X3 and CN II-XII intact Psychiatric Psychiatric exam: Present normal affect and normal mood Skin Skin exam: Present warm, dry, intact and normal color Course Quality Measures none Orders Category Date Time Status EKG (ED ONLY) *Do not use* NOW Care 12/17/24 09:[address] head/brain wo con Stat Exams 12/17/24 09:13 Completed EKG (ED Only) Stat Exams 12/17/24 09:13 Draft BNP [B-Type Natriuretic Peptide] Stat Lab 12/17/24 09:40 Completed CBC Stat Lab 12/17/24 09:40 Completed Comprehensive Metabolic Panel Stat Lab 12/17/24 09:40 Completed Drug Screen,Urine Stat Lab 12/17/24 10:20 Completed Troponin I Stat Lab 12/17/24 09:40 Completed Urinalysis Stat Lab 12/17/24 10:20 Completed Urine Culture Stat Lab 12/17/24 10:20 Received SUMAtriptan INJ [Imitrex Inj] Med 12/17/24 11:11 Discontinued 6 mg SC X1 ONE Vital Signs Vital signs: Vital Signs Temperature 98.3 F 12/17/24 09:10 Pulse Rate 107 H 12/17/24 09:10 Respiratory Rate 20 12/17/24 09:10 Blood Pressure 127/89 H 12/17/24 09:10 Pulse Oximetry (%) 97 12/17/24 09:10 Oxygen Delivery Method Room Air 12/17/24 09:10 Pulse ox is 97% on room air which is adequate. Headache MDM Narrative MDM Narrative:: Alexia Jett am scribing for and in the presence of Dr. Culp. Patient data External records reviewed:: [facility] previous records (I reviewed ED visit on 06/11/2024 ) Clinical information provided by:: patient Social determinants that could affect healthcare access:: none Patient has the following chronic illnesses:: None reported How is presenting disease/condition affected by chronic disease/condition?: no chronic disease Evaluation data The following diagnostics were reviewed and interpreted by me:: lab results, rad iology exam(s) and EKG tracing(s) (09:16 AM, sinus tachycardia, rate 100, normal axis, no ectopy, no signs of acute ischemia) Lab and/or radiology exams considered but not ordered:: None Interpretation Summary: Ordering Physician: Cr Uriostegui Date of Service: 12/17/24 Procedure(s): CT head/brain wo con Accession Number(s): [id number] cc: Cr Uriostegui; Calos Ag MD; NO PRIMARY/FAMILY,PHYSICIAN~ Examination: CT brain head without contrast. 2-D sagittal coronal reconstructions Date and time of exam:December 17, 2024 0929 hours INDICATIONS: Headaches and dizziness beginning 2 weeks ago CTDI: vol (mGy):49.1 DLP: (mGycm):951 Technique: Multiple CT axial sections of the brain have been obtained, 5 mm slice thickness. Contrast has not been administered. 2-D sagittal, coronal reconstructions have been obtained Low dose protocols were performed. One or more of the following dose reduction techniques were used; automated exposure control, adjustment of the mA and/or KV according to patient size, use of iterative reconstruction technique. Findings: No significant ventricular enlargement. Intra-axial or extra-axial hemorrhage density is not seen. No mass effect or midline shift Basal cisterns are not remarkable. Fourth ventricle is midline. Cranial vault intact. Impression: Negative for acute hemorrhage, mass effect or midline shift Acute left maxillary sinusitis Dictated By: Calos Ag MD Signed By: <Electronically signed by Calos Ag MD in OV> 12/17/24 1027 Medications / Prescriptions Medications or Prescriptions considered but not ordered:: None Medication administrations:: Medication Administration History Discontinued Medications Sumatriptan Succinate (Sumatriptan Inj 6 Mg/0.5 Ml Vial) 6 mg SC X1 ONE Stop: 12/17/24 11:12 Last Admin: 12/17/24 11:54 Dose: 6 mg Documented By: VENESSA See above Consultations Consultation(s) initiated? (list below): No Diagnosis Differential diagnosis headache: migraine, tension headache, subarachnoid hemorrhage, headache, sinusitis and other (cluster headache) Most likely diagnosis given after review of the tests above:: Cluster headache Admission Indicated Admission indicated?: not indicated Admission Request Was there a request for admission?: No Disposition Plan Disposition Plan: Discharge Discharge Attestation Discharge Attestation: The patient and all family members were given an opportunity to ask questions and understood the discharge instructions. Discharge instructions specifically effects, indications for sooner follow up or return to the emergency department, and the expected course of current diagnosis. Patient condition: Stable Discharge Plan Plan Patient Disposition: HOME (Self Care) Discharge Disposition comment: Stable for discharge home Patient condition on transfer: Stable Prescriptions/Referrals Prescriptions/Med Rec: New sumatriptan 20 mg/actuation spray,non-aerosol 20 mg intranasal Q2H PRN (Reason: migraine headache) Qty: 6 0RF Rx Instructions: administer into one nostril as a single dose; if 2nd dose needed,administer into other nostril after at least 2 hrs, NTE 2 doses (40 mg) per episode No Action hydrocodone-acetaminophen 10-325 mg tablet 1 tab PO Q6H MDD 4 PRN (Reason: pain) Qty: 20 0RF ciprofloxacin HCl [Cipro] 500 mg tablet 500 mg PO BID Qty: 14 0RF acetaminophen 500 mg capsule 500 mg PO Q6H PRN (Reason: pain) Qty: 30 0RF Referrals: Anibal Valencia MD [Physician] - In 1 week Problem List Clinical Impression: Cluster headache Patient/Caregiver Discharge Instructions Discharge Activity: activity as tolerated Education Materials: Migraines and Cluster Headaches, Self-Care for Headaches, Understanding Headache Pain, ED Headache, Cluster Additional Instructions: Here in the emergency department you were seen for episodes of headache. I believe you have something called cluster headaches. These are neurologic headaches that sometimes cause neurologic symptoms on one side of your head or face. This can include tearing or runny nose or even tingling or numbness on the scalp. These headaches come in clusters so they last 15 minutes to over an hour and then resolve followed by another episode. In the ER we gave you a medicine called sumatriptan. This is a special antiheadache medicine. 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 This is a medicine that you sniff up your nose on the side of your face that is more affected. You can use this medicine up to every 2 hours until headaches are gone. I given you contact information for Dr Valencia. He is our neurologist on- call for the emergency department. Please just give his office a call and make a follow-up appointment. You should be seen within the next several days. If you worsen in any way please feel free to come back to the ER and we will help you. Otherwise you should follow-up with your primary care doctor within the next several days. Print Language: Peruvian Stand Alone Forms: Thu Award Info., Patient Portal Info Letter
[2024-12-17 11:13] LABS: Amphetamine/Methamp Scrn,U Negative (Negative); Barbiturate Screen,Urine Negative (Negative); Benzodiazepines Screen,Urine Negative (Negative); Benzoylecgonine Screen, Ur Negative (Negative); Fentanyl Screen,Urine Negative (Negative); Opiate Screen,Urine Negative (Negative); THC Screen,Urine Negative (Negative)
[2024-12-17 11:23] LABS: Bacteria,Urine Rare; Bilirubin,Urine Negative (Negative); Blood,Urine Negative (Negative); Clarity,Urine Turbid (Clear/Hazy); Color,Urine Yellow (Lt Yel-Yel); Glucose, Urine Negative (Negative); Ketones,Urine 1+ (Negative); Leukocyte Esterase,Urine Positive (Negative); Nitrite,Urine Negative (Negative); PH,Urine 5.5 (5.0-7.0); Protein,Urine 1+ (Neg - Trace); RBC,Urine 1 /hpf (0-3); Specific Gravity,Urine 1.043 (1.001-1.035); Squamous Epithelial Cell,Urine 7 /hpf (0-5); Urobilinogen,Urine Negative mg/dL (0.0-1.0); WBC,Urine 14 /hpf (0-5)
[2024-12-17 11:37] VITALS: BP 114/72; PULSE 92; RESP 20; TEMP 36.7; O2SAT 99
[2024-12-17] MEDS: SUMAtriptan INJ 6 MG/0.5 ML VIAL SC (11:54)
== END 2024-12-17 12:26 | disposition home or self-care (01) ==
PROVIDERS: Nurse Practitioner Family; Emergency Provider Emergency Medicine
DX: G44.009 Cluster headache syndrome, unspecified, not intractable (principal); J01.00 Acute maxillary sinusitis, unspecified; R00.0 Tachycardia, unspecified
CPT/HCPCS: 36415; 70450; 80053; 80307; 81001; 83880; 84484; 85025; 87077; 87086; 87186; 93005; 96372; 99283; J3030